=== PATIENT | male | born 1990 | race Two or more races ===

== ENCOUNTER 2017-04-22 09:44 | Emergency (ER) | payer SELFPAY ==
[~2017-04-22] VITALS: Ht 175.3 cm; Wt 97.5 kg
[~2017-04-22 09:44] MED LIST: DIPH25CA58 PO; FAMO-63 PO; PRED-220 PO; TRIA15OI TP
[2017-04-22 09:58] VITALS: BP 145/70
[2017-04-22] MEDS ORDERED: METH4TAB2 PO (10:20)
== END 2017-04-22 11:18 | disposition home or self-care (01) ==
LOC: ER 09:44
DX: M54.40 Lumbago with sciatica, unspecified side (principal)
CPT/HCPCS: 99283